=== PATIENT | male | born 1960 | race Caucasian/White ===

== ENCOUNTER → 2021-07-21 | Outpatient (CLI) | payer OTHER | LOC: KOH-I 07-15 14:30 → EDSEX 14:27 → KOH-I 15:30 | DX: F17.210 Nicotine dependence, cigarettes, uncomplicated (principal); R91.8 Other nonspecific abnormal finding of lung field | CPT/HCPCS: 71271 ==

== ENCOUNTER → 2021-11-16 | Outpatient (CLI) | payer OTHER | LOC: HEART 5 13:52 | DX: J44.9 Chronic obstructive pulmonary disease, unspecified (principal) | CPT/HCPCS: 94060; 94729 ==